=== PATIENT | female | born 1990 | race African-American/Black ===

== ENCOUNTER 2017-11-28 11:07 | Emergency (ER) | payer OTHER, MEDICAID ==
[~2017-11-28 11:07] MED LIST: DOLU1TAB PO; IBUP600 PO; LAMI150T PO; OXYC1SOL5 PO; PREN0.01 PO
[2017-11-28 11:50] VITALS: BP 141/78; PULSE 92
[2017-11-28 12:00] VITALS: RESP 18
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
[2017-11-28 13:39] LABS: BILIRUBIN, URINE NEG (NEG); BLOOD, URINE NEG (NEG); GLUCOSE,URINE NEG (NEG); KETONE, URINE NEG (NEG); MUCUS URINE FEW /lpf (OCC); NITRITE,URINE NEG (NEG); SQUAMOUS EPITHELIAL CELL URINE 2 /hpf (0-5); URINE COLOR YELLOW (YELLW/STRAW); URINE LEUKOCYTE ESTERASE MOD (NEG)
== END 2017-11-28 14:01 | disposition home or self-care (01) ==
LOC: HOBED 11:07
DX: O26.892 Other specified pregnancy related conditions, second trimester (principal); R10.9 Unspecified abdominal pain; O16.2 Unspecified maternal hypertension, second trimester; O98.711 Human immunodeficiency virus [HIV] disease complicating pregnancy, first trimester; Z21 Asymptomatic human immunodeficiency virus [HIV] infection status; Z3A.21 21 weeks gestation of pregnancy; V43.52XA Car driver injured in collision with other type car in traffic accident, initial encounter
CPT/HCPCS: 36415; 76815; 81001; 86850; 86900; 86901; 99284